=== PATIENT | male | born 1985 | race Caucasian/White ===

== ENCOUNTER 2018-03-11 10:02 | Emergency (ER) | payer SELFPAY ==
[2018-03-11 10:15] VITALS: TEMP 98; BMI 26.6
[2018-03-11] MEDS ORDERED: amLODIPine BESYLATE 10 MG TABLET (FP) PO ONE (11:42)
[2018-03-11] MEDS ORDERED: CEPHALEXIN MONOHYDRATE 500 MG CAPSULE (UD) PO ONE (11:42)
--- NOTE | 2018-03-11 11:48 | PDOC ---
History of Present Illness - General Chief Complaint: Blood Pressure Problem Stated Complaint: RT TOE PAIN Time Seen by Provider: 03/11/18 11:39 - History of Present Illness Initial Comments: 03/11/18 11:42 32 M with h/o HTN presents to ED with R 5th toe pain. Pt states that he has a callus on his medial 5th toe, and over the past week he has been using over the counter callus removal ointment. Over the past few days, he noticed that the callus has gotten larger, and the toe has gotten more swollen. Pt denies F/C. Denies any trauma or injury to the toe. Pt's BP was noted to be elevated in ED. Pt states that he was previously on amlodipine 10mg but stopped taking it when his BP improved. Pt denies CP/SOB. Denies NICHOLAS. Past History - Past Medical History Home Medications: Ambulatory Orders Amlodipine Besylate 10 mg PO DAILY #30 tablet 03/11/18 Cephalexin [Keflex] 500 mg PO BID #14 capsule 03/11/18 COPD: No HTN: Yes - Suicide/Smoking/Psychosocial Hx Smoking History: Never smoked Information on smoking cessation initiated: No Hx Alcohol Use: No Drug/Substance Use Hx: No Substance Use Type: None Review of Systems - Review of Systems Comments:: 03/11/18 11:45 "GENERAL/CONSTITUTIONAL: No fever or chills. No weakness. HEAD, EYES, EARS, NOSE AND THROAT: No change in vision. No ear pain or discharge. No sore throat. CARDIOVASCULAR: No chest pain or shortness of breath. RESPIRATORY: No cough, wheezing, or hemoptysis. GASTROINTESTINAL: No nausea, vomiting, diarrhea or constipation. GENITOURINARY: No dysuria, frequency, or change in urination. MUSCULOSKELETAL: + R 5th toe pain. No neck or back pain. SKIN: No rash NEUROLOGIC: No headache, vertigo, loss of consciousness, or change in strength/ sensation. ENDOCRINE: No increased thirst. No abnormal weight change. HEMATOLOGIC/LYMPHATIC: No anemia, easy bleeding, or history of blood clots. ALLERGIC/IMMUNOLOGIC: No hives or skin allergy. *Physical Exam - Vital Signs Last Vital Signs Temp Pulse Resp BP Pulse Ox 98 F 72 18 176/107 H 100 03/11/18 10:12 03/11/18 10:12 03/11/18 10:12 03/11/18 10:12 03/11/18 10:12 - Physical Exam Comments: 03/11/18 11:46 "GENERAL: Awake, alert, and fully oriented, in no acute distress. HEAD: No signs of trauma EYES: PERRLA, EOMI, sclera anicteric, conjunctiva clear ENT: Auricles normal inspection, hearing grossly normal, nares patent, oropharynx clear without exudates. Moist mucosa NECK: Nontender, no stepoffs, Normal ROM, supple, no lymphadenopathy, JVD, or masses LUNGS: Breath sounds equal, clear to auscultation bilaterally. No wheezes, and no crackles HEART: Regular rate and rhythm, normal S1 and S2, no murmurs, rubs or gallops ABDOMEN: Soft, nontender, normoactive bowel sounds. No guarding, no rebound. No masses EXTREMITIES: + R 5th toe with callus on medial aspect, mild erythema surrounding , no drainage, no fluctuance, full ROM of all joints, no pain with passive extension NEUROLOGICAL: Cranial nerves II through XII intact. 5/5 strength and sensation in all extremities, Normal speech, normal gait, normal cerebellar function SKIN: Warm, Dry, normal turgor, no rashes or lesions noted. Medical Decision Making - Medical Decision Making 03/11/18 11:46 32 M with mild cellulitis of R 5th toe. No sign of septic arthritis, no flexor tendon involvement. Pt incidentally noted to be hypertensive in ED, with BP 170/ 100, likely 2/2 med noncompliance. Pt with no CP/SOB/NICHOLAS. - Keflex for cellulitis - Home dose amlodipine - F/u podiatry and PMD *DC/Admit/Observation/Transfer Diagnosis at time of Disposition: Toe infection, Callus of foot, HTN (hypertension) - Discharge Dispostion Disposition: HOME - Prescriptions Prescriptions: Amlodipine Besylate 10 mg PO DAILY #30 tablet Cephalexin [Keflex] 500 mg PO BID #14 capsule - Referrals Referrals: Jarred Patel MD [Staff Physician] - - Patient Instructions Printed Discharge Instructions: DI for High Blood Pressure, DI for Calluses and Corns Additional Instructions: You have a mild infection of your toe. Take the antibiotics as prescribed to treat it. Do not use the callus removal treatment any longer. Follow up with a wrist closer within 48 hours for further management of your callus. Call the number provided to make an appointment. You also need to have your blood pressure re-checked by your primary doctor, as it was elevated today. Make an appointment with your primary within 1 week. Uncontrolled blood pressure can eventually lead to kidney disease, heart disease , other serious illness, disability, or even . Continue taking your amlodipine as prescribed. - Post Discharge Activity
[2018-03-11] MEDS ORDERED: CEPHALEXIN MONOHYDRATE 500 MG CAPSULE (UD) ONE (11:58)
[2018-03-11] MEDS ORDERED: amLODIPine BESYLATE 5 MG TABLET (FP) ONE (11:58)
[2018-03-11] MEDS ORDERED: ACETAMINOPHEN 500 MG TABLET (FP) PO ONE (12:02)
[2018-03-11] MEDS ORDERED: ACETAMINOPHEN 325 MG TABLET (FP) ONE (12:04)
[2018-03-11 13:27] VITALS: BP 167/102; PULSE 75
== END 2018-03-11 13:16 | disposition home or self-care (01) ==
LOC: JER 10:02
DX: L08.9 Local infection of the skin and subcutaneous tissue, unspecified (principal); L84 Corns and callosities; I10 Essential (primary) hypertension
CPT/HCPCS: 99281-25